=== PATIENT | male | born 1990 | race Hispanic/Latino ===

== ENCOUNTER 2022-02-24 11:32 | Emergency (ER) | payer SELFPAY ==
[~2022-02-24] VITALS: Ht 162.6 cm; Wt 68.2 kg
[2022-02-24 11:49] VITALS: BP 127/81
[2022-02-24] MEDS ORDERED: FLEXERIL5 M1 PO (16:04)
[2022-02-24] MEDS ORDERED: NAPROXEN500 MG PO (16:04)
== END 2022-02-24 16:33 | disposition home or self-care (01) | DRG 552 ==
LOC: ED 11:32
DX: M54.9 Dorsalgia, unspecified (principal)

== ENCOUNTER 2022-03-26 13:09 | Emergency (ER) | payer SELFPAY ==
[~2022-03-26] VITALS: Ht 162.6 cm; Wt 72.0 kg
[~2022-03-26 13:09] MED LIST: FLEXERIL5 M1 PO; NAPROXEN500 MG PO
[2022-03-26 14:15] VITALS: BP 118/76
[2022-03-26 14:46] VITALS: BP 122/69
[2022-03-26] MEDS ORDERED: NAPROXEN500 MG PO ×2 (14:59→15:22)
[2022-03-26 15:00] VITALS: BP 114/69
[2022-03-26 15:11] VITALS: BP 114/69
== END 2022-03-26 15:25 | disposition home or self-care (01) | DRG 563 ==
LOC: ED 13:09
DX: S83.91XA Sprain of unspecified site of right knee, initial encounter (principal); G82.20 Paraplegia, unspecified; S93.401A Sprain of unspecified ligament of right ankle, initial encounter; W18.30XA Fall on same level, unspecified, initial encounter; R55 Syncope and collapse